=== PATIENT | male | born 1945 | race Caucasian/White ===

== ENCOUNTER 2016-09-06 08:31 | Day surgery (SDC) | payer MEDICARE, OTHER ==
[2016-08-29 10:55] LABS: HEMATOCRIT 40.8 % (40.0-51.0); HEMOGLOBIN 13.9 g/dL (13.6-17.8)
[2016-08-29 11:03] LABS: CALCIUM, SERUM 9.1 MG/DL (8.5-10.4); CHLORIDE, SERUM 95 MMOL/L (96-112); CO2 (CARBON DIOXIDE) 29 MMOL/L (24-34); CREATININE 0.89 MG/DL (0.70-1.30); GFR AFRICAN AMERICAN 101 ML/MIN (>=60); GFR NON AFRICAN AMERICAN 87 ML/MIN (>=60); GLUCOSE, SERUM 113 MG/DL (60-99); SODIUM, SERUM 134 MMOL/L (135-148)
[2016-08-29 11:04] LABS: BUN (BLOOD UREA NITROGEN) 16 MG/DL (6-23)
--- NOTE | ~2016-09-06 | OP ---
Record Of Operation [facility] [address] [place]. [address] NAME: MOLLY LOPEZ : 47 STATUS : [facility]#: [id number] AGE: 70 ADM/REG DATE : 09/06/16 MR#: [id number] REPORT SERV DATE: 09/06/16 DICTATED BY: JERROD MATUTE III DATE: 09/06/16 REPORT STATUS : Draft TRANSCRIBED BY: MODL DATE: 09/06/16 DATE OF PROCEDURE: 09/06/2016 PREOPERATIVE DIAGNOSIS: Urethral meatal stenosis. PREOPERATIVE DIAGNOSIS: Urethral meatal stenosis. PROCEDURE: Urethral meatotomy and cystoscopy. SURGEON: Jerrod Matute M.D. ANESTHESIA: General. SPECIMENS: None. DRAINS: None. INDICATION: Mr. Lopez is a 70-year-old white male. He has had a TURP in the past. He has a history of urethral meatal stenosis. This has recurred. Consent is obtained for the urethral meatotomy and cystoscopy. PROCEDURE IN DETAIL: After consent was obtained, the patient was identified. He was taken to the OR and put to sleep. He was positioned in the low lithotomy position and prepped and draped in usual fashion. He had a pinpoint meatus. [place] sounds were used to dilate to 30-Sami. Cystoscopy was performed. His prostate was open consistent with a prior TURP. There was minimal regrowth. The bladder was capacious, but there were no tumors, stones, or foreign bodies noted. The bladder was then drained. The scope was removed. A straight clamp was placed across the meatus at the 6 o'clock position for approximately 0.5 cm. The tissue was crimped and then cut. The edges of the meatotomy were then reapproximated with 4 0 chromic suture. There was minimal bleeding noted. The patient was awakened and taken to recovery room in stable condition. PH/MODL Jerrod Matute III, M.D. / [id number] CC: Ezio Baez III, MD
[~2016-09-06 08:31] MED LIST: ACET500CAP PO; ASAB PO; COREG12 PO; ELIQUIS 2.5 MG2.5 MG PO; ELIQUIS 5 MG TAB5 MG PO; KLOR-CON M2020 MEQ PO; L40 PO; LEVAQUIN750 MG PO; PRAVAC PO; PRIN10 PO; PRIN5 PO; PROSCAR5 PO; SPIRO25 PO; V5 PO
== END 2016-09-06 15:06 | disposition home or self-care (01) ==
LOC: SDC 08:31
PROVIDERS: Urology
PROC: 0T7D8ZZ Dilation of Urethra, Via Natural or Artificial Opening Endoscopic (ICD-10-PCS; principal; 2016-09-06 09:15)
DX: N35.9 Urethral stricture, unspecified (principal); I25.10 Atherosclerotic heart disease of native coronary artery without angina pectoris; I13.0 Hypertensive heart and chronic kidney disease with heart failure and stage 1 through stage 4 chronic kidney disease, or unspecified chronic kidney disease; N18.9 Chronic kidney disease, unspecified; N40.0 Benign prostatic hyperplasia without lower urinary tract symptoms; I50.9 Heart failure, unspecified; Z88.2 Allergy status to sulfonamides; Z79.899 Other long term (current) drug therapy; Z95.1 Presence of aortocoronary bypass graft; Z98.890 Other specified postprocedural states
CPT/HCPCS: 80048; 85014; 85018; 93005; A9270-GY; J0690; J3010